=== PATIENT | female | born 1945 | race Caucasian/White ===

== ENCOUNTER 2021-03-24 10:07 | Outpatient (CLI) | payer MEDICARE, OTHER | END 2021-03-24 10:08 | disposition home or self-care (01) | LOC: CSHMRI 10:07 | PROVIDERS: ATTEND Family Medicine | DX: R41.3 Other amnesia (principal); R47.89 Other speech disturbances; Z86.73 Personal history of transient ischemic attack (TIA), and cerebral infarction without residual deficits; I65.21 Occlusion and stenosis of right carotid artery | CPT/HCPCS: 70553; 82565; 93880 ==

== ENCOUNTER 2023-05-24 11:59 | Outpatient (CLI) | payer MEDICARE, OTHER | END 2023-05-24 12:00 | disposition home or self-care (01) | LOC: CSHULT 11:59 | PROVIDERS: ATTEND Internal Medicine | DX: I65.21 Occlusion and stenosis of right carotid artery (principal) | CPT/HCPCS: 93880 ==